=== PATIENT | female | born 1995 | race Caucasian/White ===

== ENCOUNTER 2017-04-19 19:35 | Emergency (ER) | payer SELFPAY ==
[~2017-04-19] VITALS: Ht 167.6 cm; Wt 70.5 kg
[2017-04-19 19:40] VITALS: BP 139/76; PULSE 69; RESP 18; TEMP 98.9; O2SAT 100
[2017-04-19] MEDS ORDERED: TETANUS/DIPHTHERIA TOXOID ADULT 0.5 ML VIAL IM ONE (20:30)
[2017-04-19] MEDS ORDERED: IBUP800T23 PO (20:53)
--- NOTE | 2017-04-19 20:53 | PD ---
HPI Chief Complaint: Laceration/Skin Injury Time Seen by Provider: 20:45 Travel History International Travel<30 days: No Contact w/Intl Traveler<30days: No Traveled to known affect area: No History of Present Illness HPI Patient is a 21-year-old female presenting to to the emergency department for evaluation of lacerations to her right hand. She was washing dishes when a glass broke, cutting her on her thumb in the dorsal aspect of her hand. She is uncertain when she received her last tetanus vaccine. Patient denies any significant pain at this time. She has no other complaints. [facility] Past Medical History Medical History: Denies Significant Hx Tetanus Vaccination: > 5 Years ?: Not LMP: 04/05/17 Past Surgical History Surgical History: No Previous Surgery Social History Alcohol Use: No Tobacco Use: No Substance Use: No Allergies-Medications (Allergen,Severity, Reaction): Coded Allergies: No Known Allergies (Unverified , 04/19/17) Reported Meds & Prescriptions Reported Meds & Active Scripts Active No Active Prescriptions or Reported Medications Review of Systems Except as stated in HPI: all other systems reviewed are Neg Skin: Positive Other (lacerations) Physical Exam Narrative GENERAL: Well-developed, well-nourished, alert female. Resting comfortably in no acute distress. SKIN: Warm and dry. 1.5 cm laceration to the left thumb adjacent to the MCP joint medially, there is a 1 cm superficial laceration to the dorsal aspect of the right hand just proximal to the fourth MCP joint HEAD: Normocephalic. EYES: No scleral icterus. No injection or drainage. NECK: Supple, trachea midline. No JVD or lymphadenopathy. CARDIOVASCULAR: Regular rate and rhythm without murmurs, gallops, or rubs. RESPIRATORY: Breath sounds equal bilaterally. No accessory muscle use. GASTROINTESTINAL: Abdomen soft, non-tender, nondistended. MUSCULOSKELETAL: No cyanosis, or edema. Full range of motion in left hand and fingers, patient is neurovascularly intact. BACK: Nontender without obvious deformity. No CVA tenderness. Data Data Last Documented VS Vital Signs Date Time Temp Pulse Resp B/P (MAP) Pulse Ox O2 Delivery O2 Flow Rate FiO2 04/19/17 19:40 98.9 69 18 139/76 (97) 100 Orders Orders Tetanus/Diphtheria Tox Adult (Tetanus/Di (04/19/17 20:30) MDM Medical Decision Making Medical Screen Exam Complete: Yes Emergency Medical Condition: Yes Interpretation(s) Vital Signs Date Time Temp Pulse Resp B/P (MAP) Pulse Ox O2 Delivery O2 Flow Rate FiO2 04/19/17 19:40 98.9 69 18 139/76 (97) 100 Differential Diagnosis Laceration versus abrasion versus fracture versus other Narrative Course Patient is a 21-year-old female presenting for evaluation of laceration to her right hand that she sustained while washing dishes. Patient is neurovascularly intact, base of wound was well visualized, there is no tendon injury or bony abnormalities noted. Please see procedure report for laceration repair. Tetanus vaccine was updated in the emergency department today. Patient was given wound care instructions, she was educated on the signs and symptoms of infection. Patient and family members verbalized understanding of these instructions. Patient is stable for discharge. Procedures Procedure Narrative LACERATION LOCATION: Right thumb LENGTH: 2 cm NUMBER OF STITCHES/ELPIDIO: 5 stitches REPAIR: The area of the laceration was prepped with Betadine and sterilely draped. The laceration was infiltrated with 1% lidocaine]. The wound was copiously irrigated and explored without evidence of foreign body, tendon injury or neurovascular injury. The wound was closed using 4-0 Prolene. This was a 1 layer repair. A sterile dressing was applied. The patient was advised to keep the dressing clean and dry. Patient tolerated the procedure well. LACERATION LOCATION: Dorsal aspect of the right hand just proximal to the fourth MCP LENGTH: 1 cm NUMBER OF STITCHES/ELPIDIO: 3 stitches REPAIR: The area of the laceration was prepped with Betadine and sterilely draped. The laceration was infiltrated with 1% lidocaine. The wound was copiously irrigated and explored without evidence of foreign body, tendon injury or neurovascular injury. The wound was closed using 4-0 Prolene. This was a 1 layer repair. A sterile dressing was applied. The patient was advised to keep the dressing clean and dry. Patient tolerated the procedure well. Diagnosis Primary Impression: Laceration of hand Qualified Codes: S61.411A - Laceration without foreign body of right hand, initial encounter Referrals: [facility] Primary Care Physician Patient Instructions: Care For Your Stitches (ED), General Instructions, Laceration (ED) Additional Instructions: Keep hand clean and dry, Do not submerge and water, do not go swimming until wound is well-healed Return to emergency department immediately for any new or worsening symptoms Stitches will need to be removed in 10-14 days. You can return to emergency department or follow-up with your primary doctor Take ibuprofen as needed and as directed for pain Med/Other Pt SpecificInfo: Prescription(s) given, No Change to Meds Scripts Ibuprofen (Ibuprofen) 800 Mg Tab 800 MG PO Q6HR Y for PAIN, #40 TAB 0 Refills Prov: Tennille Fung 04/19/17 Disposition: 01 DISCHARGE HOME Condition: Stable Tennille Fung Apr 19, 2017 20:53
== END 2017-04-19 21:13 | disposition home or self-care (01) ==
LOC: NEPK 19:35
DX: S61.411A Laceration without foreign body of right hand, initial encounter (principal); Z23 Encounter for immunization; W25.XXXA Contact with sharp glass, initial encounter
CPT/HCPCS: 12001; 90471; 90714